=== PATIENT | male | born 1955 | race Caucasian/White ===

== ENCOUNTER → 2023-08-28 12:02 | Outpatient (CLI) | payer MEDICARE, OTHER, SELFPAY ==
[2023-08-28 12:29] LABS: Add Manual Diff / Slide Review NO; Basophils Absolute Auto 100 /uL (0-100); Basophils Percent Auto 0.9 % (0-2); Eosinophils Absolute Auto 100 /uL (0-450); Eosinophils Percent Auto 2.5 % (2-4); Hematocrit 38.4 % (41-53); Hemoglobin 12.7 g/dL (13.5-17.5); Lymphocytes Absolute Auto 1500 /uL (1100-4500); Lymphocytes Percent Auto 27.1 % (25-40); Mean Corpuscular HGB Conc 33.2 % (30-36); Mean Corpuscular Hemoglobin 29.3 PG (26-34); Mean Corpuscular Volume 88.4 fL (80-100); Monocytes Absolute Auto 600 /uL (0-900); Monocytes Percent Auto 10.4 % (3-14); Neutrophils Absolute Auto 3300 /uL (1500-7000); Neutrophils Percent Auto 59.1 % (50-75); Platelet Count 287 X10^3/uL (150-400); Red Blood Cell Count 4.34 X10^6/uL (4.5-5.9); Red Cell Distribution Width 15.9 % (11.6-14.8); White Blood Cell Count 5.7 X10^3/uL (4.5-11.0)
[2023-08-28 12:57] LABS: Alanine Aminotransferase 28 IU/L (<50); Albumin 4.6 g/dL (3.5-5.0); Albumin Globulin Ratio 1.8 (1.0-2.8); Alkaline Phosphatase 54 U/L (38-126); Aspartate Aminotransferase 37 IU/L (17-59); BUN Creatinine Ratio 29.2 (6-22); Bilirubin Total 0.4 mg/dL (0.2-1.3); Blood Urea Nitrogen 28 mg/dL (9-20); Calcium 10.3 mg/dL (8.4-10.2); Carbon Dioxide 26 mmol/L (22-32); Chloride 104 mmol/L (98-107); Cholesterol 223 mg/dL (140-199); Estimated Glomerular Filt Rate > 60 mL/min (>60); Globulin 2.6 g/dL (1.7-4.1); Glucose 95 mg/dL (80-110); HDL Cholesterol 50 mg/dL (40-60); HEMOLYSIS < 15 (0-50); LDL Cholesterol Calculated 148 mg/dL (<100); Potassium 4.6 mmol/L (3.4-5.1); Sodium 139 mmol/L (137-145); Total Protein 7.2 g/dL (6.3-8.2); Triglycerides 127 mg/dL (35-150)
[2023-08-28 13:22] LABS: TSH w/ Reflex to FT4 3.19 uIU/mL (0.47-4.68)
[2023-08-28 13:26] LABS: Prostate Specific Antigen Scrn < 0.064 ng/mL (0.1-4.0)
== END ==
PROVIDERS: PCP Family Medicine; Referring Provider Family Medicine; Visit Provider Family Medicine
DX: C67.9 Malignant neoplasm of bladder, unspecified (principal); F41.9 Anxiety disorder, unspecified; Z12.5 Encounter for screening for malignant neoplasm of prostate; K21.9 Gastro-esophageal reflux disease without esophagitis; G47.00 Insomnia, unspecified; Z90.79 Acquired absence of other genital organ(s); Z90.6 Acquired absence of other parts of urinary tract
CPT/HCPCS: 36415; 80053; 80061; 84443; 85025; G0103

== ENCOUNTER 2023-09-23 08:46 | Day surgery (SDC) | payer MEDICARE, OTHER, SELFPAY ==
[2023-09-23 09:45] VITALS: BP 161/94; PULSE 83; RESP 17; TEMP 36.6; O2SAT 97; BMI 23.8
[2023-09-23] MEDS: LACTATED RINGERS 1,000 ML 42 ML IV (09:58)
--- NOTE | 2023-09-23 10:22 | P.HP_ITS ---
History of Present Illness History of Present Illness Date Patient Seen: 09/23/23 Time Patient Seen: 10:22 Chief complaint: Dx Colonoscopy w/poss bx Narrative: 67-year-old man here for screening colonoscopy. History of bladder cancer status post cystectomy with ileal conduit this past year currently on immunotherapy. No new abdominal pain or blood per rectum. No family history of colon cancer. [facility] Medical History Psoriasis Pneumothorax (~1984) Mumps Measles Vertigo (~2016) Tinnitus (~1974) Hemorrhoid History of immunotherapy (~03/2023) History of chemotherapy (~11/2022) Bladder cancer (~2021) Primary bladder papillary carcinoma GERD (gastroesophageal reflux disease) Anxiety (~2021) Insomnia Surgical History Anesthesia S/P radical cystoprostatectomy (~03/11/23) Family History Father History of heart disease Mother No problems noted. Sister Cancer Grandmother Cancer Grandmother History of heart disease Social History household members: spouse Smoking Status: Former smoker alcohol intake: former Meds Home Medications and Allergies Home Medications Medication Instructions Recorded Confirmed Type acetaminophen 500 mg capsule 1,000 mg PO Q6H PRN Abdominal 05/13/23 09/23/23 History Discomfort cholecalciferol (vitamin D3) 50 50 mcg PO DAILY 05/13/23 09/23/23 History mcg (2,000 unit) capsule famotidine 20 mg tablet (Pepcid AC) 20 mg PO DAILY 05/13/23 09/23/23 History fenofibrate micronized 130 mg 130 mg PO DAILY #90 caps 05/13/23 09/23/23 Rx capsule ibuprofen 400 mg tablet 400 mg PO Q6H 05/13/23 09/23/23 History loratadine 5 mg-pseudoephedrine ER 1 tab PO Q12H 05/13/23 09/23/23 History 120 mg tablet,extended release,12hr (AllerAxelar D-12hr) lorazepam 1 mg tablet 1 mg PO BID PRN Anxiety 05/13/23 09/23/23 History magnesium oxide 400 mg PO DAILY 05/13/23 09/23/23 History melatonin 5 mg capsule 5 mg PO 3XD 05/13/23 09/23/23 History multivit with min-folic acid 1 tab PO DAILY 05/13/23 09/23/23 History [Men's Multivitamin Gummies] nivolumab IV 05/13/23 08/29/23 History prochlorperazine maleate 10 mg 10 mg PO BID PRN Vomiting 05/13/23 09/23/23 History tablet sildenafil 50 mg tablet 50 mg PO DAILY PRN BLADDER CANCER, 05/13/23 09/23/23 History PROSTATE REMOVAL duloxetine 30 mg capsule,delayed 30 mg PO DAILY #90 caps 06/16/23 09/23/23 Rx release duloxetine 60 mg capsule,delayed 60 mg PO DAILY #90 caps 06/16/23 09/23/23 Rx release rosuvastatin 10 mg tablet (Crestor) 10 mg PO DAILY #90 tabs 08/29/23 09/23/23 Rx lorazepam 1 mg tablet 1 mg PO Q8H PRN anxiety 09/23/23 09/23/23 History Allergies Allergy/AdvReac Type Severity Reaction Status Date / Time No Known Drug Allergies Allergy Verified 09/23/23 09:31 Exam Vital Signs (past 8 hours): - 09/23/23 09:45 Temperature 97.9 F Pulse Rate 83 Respiratory Rate 17 Blood Pressure 161/94 H Pulse Oximetry 97 Oxygen Delivery Method Room Air Oxygen Delivery Method Room Air Narrative Exam Narrative: General adult man alert oriented no acute distress Chest nonlabored respiration Extremities warm well perfused Assessment & Plan Assessment & Plan narrative: The patient requires colorectal screening and colonoscopy is recommended. Technical details were discussed. Risks, benefits, alternatives explained. Risks including but not limited to myocardial infarction, aspiration, bleeding, pain, missed lesion, incomplete examination, need for further radiographic studies, colonic perforation, and need for major abdominal surgery were discussed. All questions were answered to their satisfaction, and they are in agreement with this plan.
[2023-09-23 11:00] VITALS: BP 138/86; PULSE 77; RESP 20; TEMP 36.8; O2SAT 95
[2023-09-23 11:05] VITALS: BP 146/74; PULSE 72; RESP 17; O2SAT 100
--- NOTE | 2023-09-23 11:05 | P.OP.COLON_ITS ---
Operative Date/Time/Diagnoses Date of procedure: 09/23/23 Time of procedure: 11:05 Pre-op diagnosis: Colorectal screening Procedure & Clinicians Study performed: Colonoscopy Same procedure as scheduled: Yes Indications: Colorectal screening Surgeon: Antoine Campos Procedure Notes Procedure in detail: The history and physical was performed/updated and the patient is ASA class is 3. The procedure was discussed in detail with the patient. Potential risks complications including infection, bleeding, missed diagnosis, perforation, need for surgery, and were explained. Their questions were answered and informed consent was obtained. Patient was brought to the procedure room and placed standard monitoring equipment. The patient's vital signs were monitored continuously throughout the entire procedure. Prior to starting time-out was performed. The patient was placed in the left lateral recumbent position. Procedural sedation was administered by anesthesia. Examination began with a thorough inspection of the perianal area there was no evidence of fissures, fistulae, external hemorrhoids or cutaneous malignancy. The colonoscopy scope was then placed into the anal canal and was advanced to the cecum, which was identified by the ileocecal valve , the appendiceal orifice and the confluence of the taenia. The scope was then slowly withdrawn examining colon thoroughly in all directions, irrigating it of any residual stool. The scope was retroflexed within the rectum The patient tolerated the procedure well. They will be discharged once criteria are met. The prep was of poor quality. The withdrawl time was 9 minutes. FINDINGS * No masses or polyps * Tortuous colon required stiffening of the scope and external compression. * Moderate sigmoid diverticulosis * Internal hemorrhoids Specimen(s): none sent Impression: Diverticulosis Post-procedure Recommendations: High fiber diet Plan for aftercare: No need for further colonoscopy unless symptomatic Disposition: same day surgery
[2023-09-23 11:10] VITALS: BP 130/75; PULSE 75; RESP 14; O2SAT 99
[2023-09-23 11:25] VITALS: BP 150/98; PULSE 77; RESP 17; TEMP 36.1; O2SAT 100
== END 2023-09-23 11:30 | disposition home or self-care (01) ==
PROVIDERS: PCP Family Medicine; Referring Provider Surgery; Visit Provider Surgery
PROC: 0DJD8ZZ Inspection of Lower Intestinal Tract, Via Natural or Artificial Opening Endoscopic (ICD-10-PCS; CPT 45378; principal; 2023-09-23 10:15)
DX: Z12.11 Encounter for screening for malignant neoplasm of colon (principal); K57.30 Diverticulosis of large intestine without perforation or abscess without bleeding; K64.8 Other hemorrhoids
CPT/HCPCS: G0121

== ENCOUNTER → 2023-10-31 09:29 | Outpatient (CLI) | payer MEDICARE, OTHER, SELFPAY ==
[2023-10-31 11:35] LABS: Add Manual Diff / Slide Review NO; Basophils Absolute Auto 100 /uL (0-100); Basophils Percent Auto 1.3 % (0-2); Eosinophils Absolute Auto 200 /uL (0-450); Eosinophils Percent Auto 4.1 % (2-4); Hematocrit 41.4 % (41-53); Hemoglobin 14.2 g/dL (13.5-17.5); Lymphocytes Absolute Auto 1400 /uL (1100-4500); Lymphocytes Percent Auto 25.3 % (25-40); Mean Corpuscular HGB Conc 34.3 % (30-36); Mean Corpuscular Hemoglobin 30.5 PG (26-34); Monocytes Absolute Auto 500 /uL (0-900); Monocytes Percent Auto 8.2 % (3-14); Neutrophils Absolute Auto 3500 /uL (1500-7000); Neutrophils Percent Auto 61.1 % (50-75); Platelet Count 260 X10^3/uL (150-400); Red Blood Cell Count 4.66 X10^6/uL (4.5-5.9); Red Cell Distribution Width 13.6 % (11.6-14.8); White Blood Cell Count 5.7 X10^3/uL (4.5-11.0)
[2023-10-31 12:01] LABS: HEMOLYSIS < 15 (0-50); Iron 76 ug/dL (49-181)
[2023-10-31 12:12] LABS: Percent Iron Saturation 22 % (20-50); Total Iron Binding Capacity 351 ug/dL (261-462); Transferrin 295 mg/dL (206-381)
[2023-10-31 17:12] LABS: Alanine Aminotransferase 36 IU/L (<50); Albumin 4.6 g/dL (3.5-5.0); Albumin Globulin Ratio 1.5 (1.0-2.8); Alkaline Phosphatase 73 U/L (38-126); BUN Creatinine Ratio 31.3 (6-22); Bilirubin Total 0.5 mg/dL (0.2-1.3); Blood Urea Nitrogen 25 mg/dL (9-20); Carbon Dioxide 28 mmol/L (22-32); Chloride 102 mmol/L (98-107); Cholesterol 134 mg/dL (140-199); Estimated Glomerular Filt Rate > 60 mL/min (>60); Globulin 3.1 g/dL (1.7-4.1); Glucose 92 mg/dL (80-110); HDL Cholesterol 35 mg/dL (40-60); HEMOLYSIS < 15 (0-50); LDL Cholesterol Calculated 72 mg/dL (<100); Potassium 4.2 mmol/L (3.4-5.1); Sodium 141 mmol/L (137-145); Total Protein 7.7 g/dL (6.3-8.2); Triglycerides 137 mg/dL (35-150)
[2023-10-31 17:35] LABS: Aspartate Aminotransferase 39 IU/L (17-59)
[2023-10-31 17:52] LABS: Ferritin 34 ng/mL (18-464)
== END ==
PROVIDERS: PCP Family Medicine; Referring Provider Family Medicine; Visit Provider Family Medicine
DX: F41.9 Anxiety disorder, unspecified (principal); C67.9 Malignant neoplasm of bladder, unspecified; K21.9 Gastro-esophageal reflux disease without esophagitis; G47.00 Insomnia, unspecified; R03.0 Elevated blood-pressure reading, without diagnosis of hypertension; Z90.79 Acquired absence of other genital organ(s); Z90.6 Acquired absence of other parts of urinary tract
CPT/HCPCS: 36415; 80053; 80061; 82728; 83540; 83550; 85025

== ENCOUNTER → 2024-09-03 10:06 | Outpatient (CLI) | payer MEDICARE, OTHER, SELFPAY ==
[2024-09-03 11:52] LABS: Add Manual Diff / Slide Review NO; Basophils Absolute Auto 100 /uL (0-100); Basophils Percent Auto 1.4 % (0-2); Eosinophils Absolute Auto 600 /uL (0-450); Eosinophils Percent Auto 10.1 % (2-4); Hematocrit 42.5 % (41-53); Hemoglobin 14.2 g/dL (13.5-17.5); Lymphocytes Absolute Auto 1500 /uL (1100-4500); Lymphocytes Percent Auto 26.3 % (25-40); Mean Corpuscular HGB Conc 33.5 % (30-36); Mean Corpuscular Hemoglobin 31.3 PG (26-34); Mean Corpuscular Volume 93.5 fL (80-100); Monocytes Absolute Auto 400 /uL (0-900); Monocytes Percent Auto 6.9 % (3-14); Neutrophils Absolute Auto 3300 /uL (1500-7000); Neutrophils Percent Auto 55.3 % (50-75); Platelet Count 243 X10^3/uL (150-400); Red Blood Cell Count 4.55 X10^6/uL (4.5-5.9); Red Cell Distribution Width 13.5 % (11.6-14.8); White Blood Cell Count 5.9 X10^3/uL (4.5-11.0)
[2024-09-03 12:28] LABS: Creatinine Urine Random 70.97 mg/dL
[2024-09-03 12:31] LABS: Alanine Aminotransferase 23 IU/L (<50); Albumin 4.5 g/dL (3.5-5.0); Albumin Globulin Ratio 1.9 (1.0-2.8); Alkaline Phosphatase 74 U/L (38-126); Aspartate Aminotransferase 33 IU/L (17-59); BUN Creatinine Ratio 22.4 (6-22); Bilirubin Total 0.5 mg/dL (0.2-1.3); Blood Urea Nitrogen 19 mg/dL (9-20); Calcium 9.7 mg/dL (8.4-10.2); Carbon Dioxide 28 mmol/L (22-32); Chloride 104 mmol/L (98-107); Cholesterol 165 mg/dL (140-199); Estimated Glomerular Filt Rate > 60 mL/min (>60); Globulin 2.4 g/dL (1.7-4.1); Glucose 96 mg/dL (80-110); HDL Cholesterol 47 mg/dL (40-60); HEMOLYSIS < 15 (0-50); LDL Cholesterol Calculated 85 mg/dL (<100); Potassium 4.7 mmol/L (3.4-5.1); Sodium 139 mmol/L (137-145); Total Protein 6.9 g/dL (6.3-8.2); Triglycerides 163 mg/dL (35-150)
[2024-09-03 12:49] LABS: Microalbumin Urine Random 28.5 mg/dL (0-1.6)
[2024-09-03 13:03] LABS: TSH w/ Reflex to FT4 2.46 uIU/mL (0.47-4.68)
[2024-09-03 13:04] LABS: Prostate Specific Antigen Scrn < 0.064 ng/mL (0.1-4.0)
[2024-09-04 08:11] LABS: Apolipoprotein B 86 mg/dL (<90)
== END ==
PROVIDERS: PCP Family Medicine; Referring Provider Family Medicine; Visit Provider Family Medicine
DX: C67.9 Malignant neoplasm of bladder, unspecified (principal); Z12.5 Encounter for screening for malignant neoplasm of prostate; G47.00 Insomnia, unspecified; Z90.79 Acquired absence of other genital organ(s); Z90.6 Acquired absence of other parts of urinary tract; K21.9 Gastro-esophageal reflux disease without esophagitis; R03.0 Elevated blood-pressure reading, without diagnosis of hypertension; F41.9 Anxiety disorder, unspecified
CPT/HCPCS: 36415; 80053; 80061; 82043; 82172; 82570; 84443; 85025; G0103

== ENCOUNTER → 2024-10-07 09:01 | Outpatient (CLI) | payer MEDICARE, OTHER, SELFPAY ==
[2024-10-07 10:17] LABS: Alanine Aminotransferase 20 IU/L (<50); Albumin Globulin Ratio 1.5 (1.0-2.8); Alkaline Phosphatase 76 U/L (38-126); Aspartate Aminotransferase 30 IU/L (17-59); BUN Creatinine Ratio 19.1 (6-22); Bilirubin Total 0.5 mg/dL (0.2-1.3); Blood Urea Nitrogen 17 mg/dL (9-20); Calcium 9.4 mg/dL (8.4-10.2); Carbon Dioxide 29 mmol/L (22-32); Chloride 104 mmol/L (98-107); Estimated Glomerular Filt Rate > 60 mL/min (>60); Globulin 2.7 g/dL (1.7-4.1); Glucose 94 mg/dL (80-110); HEMOLYSIS < 15 (0-50); Sodium 136 mmol/L (137-145); Total Protein 6.7 g/dL (6.3-8.2)
[2024-10-07 16:25] LABS: Creatinine Urine Random 72.91 mg/dL
[2024-10-07 16:32] LABS: Microalbumin Urine Random 12.1 mg/dL (0-1.6)
== END ==
PROVIDERS: PCP Family Medicine; Referring Provider Family Medicine; Visit Provider Family Medicine
DX: I10 Essential (primary) hypertension (principal)
CPT/HCPCS: 36415; 80053; 82043; 82570

== ENCOUNTER → 2025-01-25 10:00 | Outpatient (CLI) | payer MEDICARE, OTHER, SELFPAY ==
[2025-01-26 04:16] LABS: Alpha 1 Anti Trypsin 140 mg/dL (101-187)
== END ==
PROVIDERS: PCP Family Medicine; Referring Provider Family Medicine; Visit Provider Family Medicine
DX: J43.9 Emphysema, unspecified (principal)
CPT/HCPCS: 36415; 82103

== ENCOUNTER → 2025-04-14 09:59 | Outpatient (CLI) | payer MEDICARE, OTHER, SELFPAY | PROVIDERS: PCP Family Medicine; Referring Provider Family Medicine; Visit Provider Internal Medicine Critical Care Medicine | DX: R06.09 Other forms of dyspnea (principal); Z87.891 Personal history of nicotine dependence; R94.2 Abnormal results of pulmonary function studies | CPT/HCPCS: 94060; 94726; 94729 ==